=== PATIENT | female | born 1965 | race Caucasian/White ===

== ENCOUNTER 2018-09-21 06:50 | Day surgery (SDC) | payer OTHER ==
[2018-09-21] MEDS ORDERED: NEOSTIGMINE 10 MG INJ (07:00)
[2018-09-21] MEDS ORDERED: SOD CHLORIDE 0.9% 1,000 ML IV (09:00)
[2018-09-21] MEDS ORDERED: ROCURONIUM 50 MG INJ (09:35)
[2018-09-21] MEDS ORDERED: CEFAZOLIN 1 GM INJ (09:35)
[2018-09-21] MEDS ORDERED: PROPOFOL 20 ML (09:35)
[2018-09-21] MEDS ORDERED: GLYCOPYRROLATE 0.4 MG INJ (09:35)
[2018-09-21] MEDS ORDERED: ONDANSETRON 4 MG INJ (09:36)
[2018-09-21] MEDS ORDERED: DEXAMETHASONE 4 MG/ML 5 ML INJ (09:36)
[2018-09-21] MEDS ORDERED: MIDAZOLAM 1 MG/ML 2 ML INJ (09:36)
[2018-09-21] MEDS ORDERED: FENTAnyl 50 MCG/ML VIAL (09:36)
[2018-09-21] MEDS ORDERED: ROPIVACAINE 0.5 % 30 ML VIAL (09:43)
[2018-09-21] MEDS ORDERED: LABETALOL HCL 20MG INJ IV (10:30)
[2018-09-21] MEDS ORDERED: DIPHENHYDRAMINE 50 MG INJ IV (10:30)
[2018-09-21] MEDS ORDERED: IPRATROPIUM (NEB) 0.5 MG/2.5 ML AMP HHN (10:30)
[2018-09-21] MEDS ORDERED: HYDROmorphONE 1 MG/5 ML IV SYRINGE IV (10:30)
[2018-09-21] MEDS ORDERED: MIDAZOLAM 1 MG/ML 2 ML INJ IV (10:30)
[2018-09-21] MEDS ORDERED: FENTAnyl 50 MCG/ML VIAL IV ×2 (10:30)
[2018-09-21] MEDS ORDERED: TRIMETHOBENZAMIDE 100 MG/ML VIAL IM (10:30)
[2018-09-21] MEDS ORDERED: EPHEDrine SULFATE 50 MG/5 ML SYG IV (10:30)
[2018-09-21] MEDS ORDERED: hydrALAzine 20 MG INJ IV (10:30)
[2018-09-21] MEDS ORDERED: OXYCODONE/ACETAMINOPHEN (5/325) TAB PO ×2 (10:30)
[2018-09-21] MEDS ORDERED: ALBUTEROL 0.083% (NEB) 2.5 MG/3 ML AMP HHN (10:30)
[2018-09-21] MEDS: CEFAZOLIN 2 GM/50 ML (PMX) 50 ML IVPB (10:33)
[2018-09-21] MEDS ORDERED: LABETALOL HCL 20MG INJ (10:59)
[2018-09-21] MEDS ORDERED: SUGAMMADEX SODIUM 200 MG/2 ML VIAL IV (11:13)
[2018-09-21] MEDS: HYDROmorphONE 1 MG/5 ML IV SYRINGE IV ×4 (11:29→12:19)
[2018-09-21] MEDS: FENTAnyl 50 MCG/ML VIAL IV ×4 (11:31→12:19)
[2018-09-21] MEDS: MEPERIDINE 25 MG INJ IV (11:49)
[2018-09-21] MEDS: ONDANSETRON 4 MG INJ IV (11:53)
[2018-09-21] MEDS: HYDROCODONE/APAP (5/325) TAB PO (14:23)
== END 2018-09-21 15:00 | disposition home or self-care (01) ==
LOC: SDS 06:50
DX: K82.4 Cholesterolosis of gallbladder (principal); I10 Essential (primary) hypertension; E78.5 Hyperlipidemia, unspecified
CPT/HCPCS: 47562; 88304